=== PATIENT | female | born 1965 | race Caucasian/White ===

== ENCOUNTER → 2018-06-23 | Day surgery (SDC) | payer BC ==
[~2018-06-23] MED LIST: Lactated Ringers 1,000 ML IV SCH; Propofol 200 MG/20 ML SDV IV ONE
[2018-06-23 11:41] VITALS: BP 92/58
--- NOTE | 2018-06-23 12:09 | OR ---
DATE OF OPERATION: 06/23/2018 PREOPERATIVE DIAGNOSIS: HEMATOCHEZIA. POSTOPERATIVE DIAGNOSIS: HEMATOCHEZIA. SURGEON: Tom Brush MD PROCEDURE: FULL-LENGTH COLONOSCOPY WITH POLYP REMOVAL X4. ANESTHESIA: [employer] due to her obesity. COMPLICATIONS: None. SPECIMEN: Four separate tubular adenomas. FINDINGS: 1. Full-length colonoscopy. 2. Mild to moderate sigmoid diverticulosis. 3. Tubular adenomas x4. See report. RECOMMENDATIONS: Followup colonoscopy in 5 years. INDICATIONS: The patient had a colonoscopy 2 years ago. She, however, has been having some hematochezia which has been persistent for a few weeks. We elected to proceed with repeat scope. DESCRIPTION OF PROCEDURE: The patient was prepped and draped, placed in the left lateral decubitus position. A lubricated Olympus colonoscope was inserted and advanced to the cecum without problem. Direct visualization of the ileocecal valve and appendiceal orifice was accomplished. Bowel prep was fine. Upon withdrawal of the scope, cecum, ascending, transverse, and descending colons were completely benign. The patient does have scattered diverticulosis throughout the sigmoid and in the rectosigmoid junction, mild to moderate in severity, without any acute inflammatory change. The patient had a very hemorrhagic tubular adenoma, less than 0.5 cm in the mid sigmoid area, around 55 to 60 cm. It was removed with a snare and suctioned into polyp trap #1 without difficulty. In the rectosigmoid junction, she had again a small little cluster of flat hyperplastic polyps removed, about 3 of these with forceps biopsies in their entirety. They were very small and flat consistent with hyperplastic lesions. In the rectal vault, she had 2 more polyps, one stalked and removed in its entirety with a snare near the anus that was suctioned into polyp trap #2. There was another small hyperplastic appearing polyp in the more proximal rectum, which was also removed with a snare. Minimal residual polyp was available to be retrieved. Retroflexion of scope did show a lot of perianal hemorrhoid disease. No other lesions were identified. Air was suctioned. Scope removed without complication. PERLA/SHAYY /[id number]
== END ==
LOC: CC.SDS 09:22
PROVIDERS: ATTEND Family Medicine
DX: K57.31 Diverticulosis of large intestine without perforation or abscess with bleeding (principal); K63.5 Polyp of colon; K62.1 Rectal polyp; F32.9 Major depressive disorder, single episode, unspecified; E78.5 Hyperlipidemia, unspecified; E66.01 Morbid (severe) obesity due to excess calories; G47.30 Sleep apnea, unspecified; K43.9 Ventral hernia without obstruction or gangrene; Z68.41 Body mass index [BMI] 40.0-44.9, adult; Z88.0 Allergy status to penicillin; Z79.899 Other long term (current) drug therapy
CPT/HCPCS: 45380; 45385; J2704; J7120

== ENCOUNTER → 2023-09-09 | Day surgery (SDC) | payer BC ==
[~2023-09-09] MED LIST changes: +Ketamine 200 MG/20 ML MDV ONE; +Midazolam 1 MG/ML 2 ML SDV ONE; -Propofol 200 MG/20 ML SDV IV ONE; +Propofol 200 MG/20 ML SDV ONE; +fentaNYL 50 MCG/ML SDV ONE
[2023-09-09 11:54] VITALS: BP 119/57; PULSE 62
== END ==
LOC: CC.SDS 09:53
PROVIDERS: ATTEND Family Medicine
DX: Z12.11 Encounter for screening for malignant neoplasm of colon (principal); K63.5 Polyp of colon; F32.A Depression, unspecified; E78.5 Hyperlipidemia, unspecified; E66.01 Morbid (severe) obesity due to excess calories; F17.200 Nicotine dependence, unspecified, uncomplicated; G47.30 Sleep apnea, unspecified; Z79.899 Other long term (current) drug therapy; Z98.890 Other specified postprocedural states; Z68.42 Body mass index [BMI] 45.0-49.9, adult; Z88.0 Allergy status to penicillin
CPT/HCPCS: 00811; J2250; J2704; J3010; J3490; J7120